=== PATIENT | male | born 1985 | race Caucasian/White ===

== ENCOUNTER → 2017-05-14 | Outpatient (CLI) | payer OTHER ==
[2017-05-14 13:34] LABS: HEMATOCRIT 42.8 % (42-52); MEAN CELL VOLUME 89.9 fL (80-100); MEAN CORPUSCULAR HEMOGLOBIN 30.9 pg (25-34); MEAN CORPUSCULAR HGB CONC 34.3 g/dl (32-36); MEAN PLATELET VOLUME 12.6 fL (7.4-10.4); PLATELET COUNT 224 K/uL (130-400); RED BLOOD COUNT 4.76 M/uL (4.7-6.1); WHITE BLOOD COUNT 6.14 K/uL (4.8-10.8)
[2017-05-14 13:47] LABS: ALT/SGPT 21 U/L (12-78); BLOOD UREA NITROGEN 10 mg/dl (7-18); BUN/CREATININE RATIO 10.7 (10-20); CALCIUM 9.1 mg/dl (8.5-10.1); CARBON DIOXIDE 27 mmol/L (21-32); CHLORIDE 104 mmol/L (98-107); CHOLESTEROL 140 mg/dl (0-200); CREATININE 0.94 mg/dl (0.60-1.40); GLUCOSE 91 mg/dl (70-99); POTASSIUM 3.6 mmol/L (3.5-5.1); SODIUM 139 mmol/L (136-145); TRIGLYCERIDES 59 mg/dl (0-150); VERY LOW DENSITY LIPOPROT CALC 12 mg/dl
[2017-05-14 13:52] LABS: ALB/GLOB RATIO 1.4 (0.9-2); ALKALINE PHOSPHATASE 56 U/L (45-117); AST/SGOT 14 U/L (15-37); CHOLESTEROL/HDL RATIO 2.1; HDL CHOLESTEROL 68 mg/dl; LDL CHOLESTEROL CALCULATED 60 mg/dl
== END | disposition home or self-care (01) ==
LOC: C.LABBC 12:09
PROVIDERS: ATTEND Internal Medicine
DX: Z00.00 Encounter for general adult medical examination without abnormal findings (principal)